=== PATIENT | male | born 1980 | race Caucasian/White ===

== ENCOUNTER → 2021-02-15 08:11 | Outpatient (BNVA) | payer SELFPAY | PROVIDERS: Visit Provider Internal Medicine | DX: Z02.79 Encounter for issue of other medical certificate (principal) ==

== ENCOUNTER → 2023-01-20 08:50 | Outpatient (BNVA) | payer SELFPAY | PROVIDERS: Visit Provider Physician Assistant | DX: Z02.79 Encounter for issue of other medical certificate (principal) ==

== ENCOUNTER → 2024-11-26 13:04 | Outpatient (BNVA) | payer OTHER, SELFPAY | PROVIDERS: Visit Provider Nurse Practitioner Family | DX: I48.0 Paroxysmal atrial fibrillation (principal); Z09 Encounter for follow-up examination after completed treatment for conditions other than malignant neoplasm | CPT/HCPCS: 93005 ==

== ENCOUNTER → 2024-11-26 13:55 | Outpatient (AMB) | payer OTHER, SELFPAY ==
--- NOTE | 2024-11-26 13:09 | A.OFFVIS_ITS ---
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 He was found to have atrial fibrillation and was sent to [facility] ER. He converted back to sinus rhythm prior to being seen. ER evaluation showed no acute abnormalities. He is referred to Cardiology in follow-up. Today he presents for cardiology consultation. He states on the day of his AFib he had been doing work in a squatting position then stood up. Idabel sudden onset palpitations with lightheadedness and shortness of breath. He has never felt this sensation before. He went to urgent care for evaluation. In all the episode lasted approximately 8 hours. He did convert prior to an EKG at [facility]. He has not had any known recurrent episodes since that time. He has no cardiac history. He denies chest discomfort at rest or with activity. No shortness of breath, PND, orthopnea or edema. is present and she has no concerns about him having sleep apnea. He has no presyncope, syncope, falls. He takes no medications at home. His mother had an MS in her 60s, no other family history of heart disease. No known family history of AFib. He drinks 1 caffeinated beverage per day. He drinks alcohol only occasionally. He works nights so his sleep schedule is erratic. He does have a home gym and has been using the e-[employer] aeroplanestical without concerning symptoms. [facility] Family History Mother Heart attack Social History Alcohol intake: current Alcohol intake frequency: holidays/special occasions only Review of Systems Const All systems reviewed & are unremarkable except as noted in HPI and below ENT Denies dizziness Card Details: palpitation, lightheaded and sob with afib only Denies chest pain, Denies chest pain at rest, Denies chest pain with activity, Denies rapid heart rate, Denies pedal edema, Denies edema, Denies leg edema, Denies lightheadedness, Denies palpitations, Denies dyspnea, Denies dyspnea on exertion and Denies orthopnea Resp Denies cough, Denies dyspnea and Denies dyspnea on exertion GI Denies hematochezia and Denies change in stool character Musc Denies abnormal gait, Denies limited range of motion, Denies muscle cramps, Denies muscle weakness, Denies numbness, Denies radiating pain into limb, Denies stiffness and Denies tingling Neuro Denies abnormal gait, Denies dizziness, Denies numbness and Denies tingling Endo Denies palpitations Physical Exam Vital Signs: Last Vital Signs Pulse 76 11/26/24 13:11 BP 90/62 11/26/24 13:11 BMI result Body Mass Index 29.6 Const General: cooperative, healthy appearing, comfortable and no acute distress Orientation/consciousness: patient oriented x3 Neck Neck: Yes normal visual inspection Resp Effort & Inspection: normal respiratory effort Auscultation: clear to auscultation bilaterally, no crackles, no rales, no rhonchi and no wheezes Cardio Rate: regular rate Rhythm: regular rhythm Heart sounds: S1 normal heart sound present, S2 normal heart sound present, no murmurs and no rubs Neuro General: patient oriented x3 Extrem General: Yes normal to inspection, No no pedal edema and No calf tenderness Psych Appearance: grossly normal Mental Status: mental status grossly normal Speech and movement: Normal speech and movement present Office Procedures EKG Details: Today, read by me, Sinus rhythm with PACs, rate 76, QTc 414ms [id number], Complete Assessment & Plan Assessment & Plan (1) Paroxysmal atrial fibrillation: Code(s): I48.0 - Paroxysmal atrial fibrillation Category: Medical Plan: New onset paroxysmal atrial fibrillation with episode on 11/05/2024 lasting approximately 8 hours. Symptoms of lightheadedness, palpitations, shortness of breath. EKG from urgent care confirms AFib RVR, rate 160. He converted without intervention, while waiting in the [facility] ER waiting room. ER evaluation showed no significant findings. Troponin level normal, TSH normal, viral swab negative. He was not started on any medications at that time. Chads Vasc score of 0. Today he reports no recurrent episodes since then. Diagnosis of PAF, stroke risk with AF and plan for cardiac evaluation reviewed with him. has no concerns about Basil having sleep apnea. He drinks alcohol only occasionally. He drinks 1 caffeinated beverage. Informed him that sleep apnea, excess alcohol and caffeine can cause reoccurrence of AFib. EKG done today is showing sinus rhythm with PACs, rate 76. Will start on metoprolol XL 25 mg daily to help with heart rate control if he has recurrent AFib. Will check a Holter monitor to assess for PAF and frequency of PACs. Will check an echocardiogram to assess for structural heart disease. Will check a exercise nuclear stress test to assess for ischemia. Emergency care if needed for recurrent heart palpitations. Cardiology follow-up in 4-6 weeks, when test results are available, sooner if needed. (2) Hospital discharge follow-up: Code(s): Z09 - Encounter for follow-up examination after completed treatment for conditions other than malignant neoplasm Category: Medical Plan: As above Plan Time spent on chart review, documentation, interview and assessment Orders: Orders NM cardiolite stress test Today I48.0 - Paroxysmal atrial fibrillation ECG 3 day holter monitor Today I48.0 - Paroxysmal atrial fibrillation CA stress test Today Z09 - Encounter for follow-up examination after completed treatment for conditions other than malignant neoplasm CA echo transthoracic complete Today I48.0 - Paroxysmal atrial fibrillation Medications: New metoprolol succinate ER 25 mg PO DAILY 30 tabs 5RF Coding Level of Care Code New Pt Level 4 (82074) Complex EM visit Add On G2211 Diagnoses Paroxysmal atrial fibrillation I48.0 Hospital discharge follow-up Z09 CPT Codes EKG - CPT: 67310-[id number], Complete ([id number]) Time Spent (min) 36
[2024-11-26 13:11] VITALS: BP 90/62; PULSE 76; BMI 29.6
== END | disposition home or self-care (01) ==
PROVIDERS: Visit Provider Nurse Practitioner Family
DX: I48.0 Paroxysmal atrial fibrillation (principal); Z09 Encounter for follow-up examination after completed treatment for conditions other than malignant neoplasm
CPT/HCPCS: 93010; 99204

== ENCOUNTER → 2024-12-11 07:45 | Outpatient (REF) | payer OTHER, SELFPAY ==
--- NOTE | 2024-12-11 07:49 | CA_ITS ---
Transthoracic Echocardiogram Patient (Last, First, Middle): Basil Lu A Gender: Male Date of : 1980 Age: 44 Procedure Date: 12/11/2024 Procedure Type: Transthoracic Echocardiogram Location: OP Height: 185.42 cm Weight: 97.52 kg BSA: 2.22 m2 Heart Rate: bpm BP: 104 / 66 mmHg Spa Assistant Manager: TO Referring MD: Chikis Loya SENSOR OPERATORJoslyn Symptoms: I48.0 - Paroxysmal atrial fibrillation Study Quality: Fair/Contrast ECG Rhythm: Sinus Conclusions: - The left ventricular systolic function is normal. The visually estimated ejection fraction is between 55-60%. - There is mild mitral valve regurgitation. Findings Procedure Information Contrast agent, definity, is being given per protocol without apparent complications. Left Ventricle Normal left ventricular cavity size. There is normal left ventricular wall thickness. The left ventricular systolic function is normal. The visually estimated ejection fraction is between 55-60%. There is no evidence of regional wall motion abnormalities. Diastolic function is normal for age. Right Ventricle Normal right ventricular cavity size and systolic function. Atria Both atria are normal in size. Aortic Valve There is a normal trileaflet aortic valve. There is no aortic valve stenosis. There is no aortic valve regurgitation. Mitral Valve The mitral valve appears normal. There is mild mitral valve regurgitation. There is no mitral valve stenosis. Pulmonic Valve The pulmonic valve is likely normal. Tricuspid Valve There is trace tricuspid valve regurgitation. There is no evidence of pulmonary hypertension. Great Vessels The asc aorta is normal in size. Venous The inferior vena cava is mildly dilated and collapses greater than 50% with inspiration. Pericardium/Pleural There is no evidence of pericardial effusion. Prior Study Comparison No prior study available for comparison. Measurements 2D Linear Measurements IVSd: 0.87 0.6-0.9/0.6-1.0 cm LVIDd: 5.44 3.9-5.3/4.2-5.9 cm LVIDd Index: 2.45 2.4-3.2/2.2-3.1 cm/m2 LVIDs: 4.03 2.0-3.6 cm LVPWd: 0.66 0.7-1.1 cm LA Diam: 3.50 2.7-3.8/3.0-4.0 cm LAIDs Index: 1.58 1.5-2.3 cm/m2 LV Mass: 185.18 67-162/88-224 g LV Mass Index: 83.41 43-95/49-115 g/m2 LVOT Diam: 2.30 3.0+(-)1.3 cm 2D Systolic Function EF 4C: 64.90 >55% Mitral Valve MV Pk E: 0.58 MV PK A: 0.31 MV Decel Time: 158.00 E/A: 1.90 E'Lateral: 13.60 E'Medial: 8.05 E/E' Med: 7.20 E/E' Lat: 4.30 PHT: 46.00 MVA PHT: 4.78 Decel Wright: 3.68 MR Vol - PW Dopp: 11.90 MR VTI: 1.70 MR ERO: 7.00 MR Alias Richie: 0.37 MR RAD: 0.40 Aortic Valve AoV Pk Richie: 1.10 AoV Mn Richie: 0.79 AoV VTI: 0.26 AoV Pk Grad: 5.00 Aov Mn Grad: 3.00 KYRIE Cont.VTI: 2.97 LVOT LVOT Pk Richie: 0.90 LVOT Mn Richie: 0.58 LVOT VTI: 0.18 LVOT Pk Grad: 3.00 LVOT Mn Grad: 2.00 LVOT Diam: 2.30 LVOT Area: 4.15 Diastolic Function MV Pk E: 0.58 MV Pk A: 0.31 E/A: 1.90 E'Medial: 8.05 E/E' Med: 7.20 E' Laterial: 13.60 E/E' Lat: 4.30 Right Ventricle TAPSE (mm): 22.80 TVS' Richie: 12.10 Tricuspid Valve TR Pk Richie: 2.02 TR Pk Grad: 16.00 RA Press: 8.00 RVSP: 24.00 Great Vessels Aorta Sinus of Valsalva: 3.42 2.0-3.5 cm Ao Asc: 3.30 2.1-3.4 cm Updated in Other Vendor System with Status of Final Yaniv Khalil MD electronically signed on 12/12/2024 7:59:51 AM with status of Final
--- OUTSIDE RECORDS SUMMARY | 2024-12-11 07:52 | XMS_ITS | Encounter Summary ---
Author Organization [facility] Address [address] [place] [address] Care Team Providers Care Summer School Coordinator Name Role Phone Argenis Patel MD Primary Care Provider [phone] Encounter Details Date Type Department Care Team (Late st Contact Info) Description 12/09/2024 2:15 PM EST Anesthesia Event [facility] [address] [place] [address] Lesly Winter MD [address] [place] [id number] Pari Branham CRNA [address] [place] [id number] Anesthesia Record Procedure Summary Procedure Name Responsible Anesthesiologist Anesthesia Start Time Anesthesia Stop Time COLONOSCOPY Lesly Winter MD 12/09/24 1415 1436 Events Date Time Event Comment 12/09/2024 1412 1415 An Start 1415 An Start Data The patient wa s reevaluated immediately before moderate or deep sedation use and before anesthesia induction. 1415 In Room 1416 Anesthesia Ready 1431 Out of Room 1433 an stop data 1436 An Stop 1440 Handoff to RN I completed my handoff to the receiving nurse during which we: 1. Identified the patient 2. Identified the responsible provider 3. Reviewed the pertinent medical history 4. Discussed the surgical course 5. Reviewed intra-op anesthesia management and issues during anesthesia 6. Set expectations for post-procedure period 7. Allowed opportunity for questions and acknowledgement of understanding. 1440 Handoff to RN I completed my handoff to the receiving nurse during which we: 1. Identified the patient 2. Identified the responsible provider 3. Reviewed the pertinent medical history 4. Discussed the surgical course 5. Reviewed intra-op anesthesia management and issues during anesthesia 6. Set expectations for post-procedure period 7. Allowed opportunity for questions and acknowledgement of understanding. Meds Name Total propofol (DIPRIVAN) injection 10 mg/mL 2 50 mg lidocaine PF (XYLOCAINE-MPF) local injec tion 2% 50 mg lactated Ringer's infusion 250 mL * Agents No agents on file. * Blood No blood administrations on file. Lines, Drains, and Airways Type Details Placement Removal Peripheral IV Placement Date: 12/09/24; Placement Time: 1353; Catheter Size: 22 G; Orientation: Anterior, Right; Location: Hand; Site Prep: Chlorhexidine; Inserted by: anjum; Insertion Attempts: 1; Patient Tolerance: Tolerated well; Removal Date: 12/09/24; Removal Time: 1445 12/09/24 1353 by Yumiko León RN 12/09/24 1445 by Kathryn Wayne RN documented in this encounter Social History Tobacco Use Types Packs/Day Years Used Date Smoking Tobacco: Never Smokeless Tobacco: Never Alcohol Use Standard Drinks/Week Comments Yes 3 (1 standard drink = 0.6 oz pur e alcohol) Interpersonal Safety Answer Date Record ed Physical Abuse 12/09/2024 Verbal Abuse 12/09/2024 Sex and Gender Information Value Date Recorded Sex Assigned at Male 12/09/2024 12:36 PM EST Legal Sex Male 6:10 PM EST Gender Identity Male 12/09/2024 12:36 PM EST Sexual Orientation Straight 12/09/2024 12 :36 PM EST documented as of this encounter Progress Notes * Pari Branham CRNA - 12/09/2024 2:36 PM EST Patient: Basli Lu Procedure Summary Date: 12/09/24 Room / Location: [facility] Anesthesia Start: 141 Anesthesia Stop: 143 Procedure: COLONOSCOPY Diagnosis: Colon cancer screening (Screening for colorectal malignant neoplasm) Scheduled Providers: Stephen Infante MD; Lesly Winter MD; Pari Branham CRNA Responsible Provider: Lesly Winter MD Anesthesia Type: MAC ASA Status: 3 Anesthesia Plan: MAC Last Vitals: Visit Vitals BP 123/71 Pulse 83 Temp 35.8 ??C (96.4 ??F) (Temporal) Resp 18 Ht 1.829 m (72 ) Wt 95.3 kg (210 lb) SpO2 95% BMI 28.48 kg/m?? Smoking Status Never BSA 2.18 m?? No data recorded Anesthesia Post Evaluation Patient location during evaluation: PACU Patient participation: complete - patient participated Level of consciousness: awake and alert Pain score: 0 Pain management: adequate Airway patency: patent Anesthetic complications: no Cardiovascular status: acceptable and stable Respiratory status: acceptable Hydration status: acceptable Nausea: No Vomiting: No There were no known notable events for this encounter. * Lesly Winter MD - 12/09/2024 2:06 PM EST 44 y.o. male scheduled for [COLONOSCOPY [GI6]] Ht Readings from Last 1 Encounters: 12/09/24 1.829 m (72 ) Wt Readings from Last 1 Encounters: 12/09/24 95.3 kg (210 lb) Body mass index is 28.48 kg/m??. Past Medical History: Diagnosis Date Atrial fibrillation, currently in sinus rhythm Epistaxis, recurrent 07/24/2018 DX:Epistaxis, recurrent; COMMENT: 2013 - Cauterizaton- both nares, CT- mild chronic sinusitis, hypoplastic R maxillary sinus, marked nasal septal deviation Rash 04/05/2016 DX:Rash Past Surgical History: Procedure Laterality Date OTHER SURGICAL HISTORY 2013 PROCEDURE: MA CHEMICAL CAUTERIZATION OF GRANULATION TISSUE; COMMENT: Nasal d/t nosebleeds 12/2013 left, 03/2014 right Denies anesthesia complications No Known Allergies Current Outpatient Medications on File Prior to Encounter Medication Sig Dispense Refill bisacodyL (DULCOLAX) 5 mg EC tablet Take 2 tablets by mouth right before beginning bowel prep. See instructions provided by the office 2 tablet 0 metoprolol succinate (TOPROL-XL) 25 mg 24 hr tablet Take 1 tablet (25 mg total) by mouth 1 (one) time each day. polyethylene glycol (Golytely) 236-22.74-6.74 -5.86 gram solution Take 4L by mouth once for one dose. May substitue any PEG. Starting at 6PM the night before your procedure drink 1 8oz glasses at your own pace until you complete half of the gallon. Finish 2nd half of the gallon 5 hours before your procedure. 4000 mL 0 ibuprofen (ADVIL,MOTRIN) 200 mg tablet Take 400 mg by mouth every 6 hours as needed. scopolamine (TRANSDERM-SCOP) 1 mg over 3 days patch [address] 1 Each onto the skin every 72 hoursas needed (dizziness). (Patient not taking: Reported on 10/31/2024) SUMAtriptan (IMITREX) 50 mg tablet 1 TAB BY MOUTH NEEDED FOR MIGRAINE.FOR REFRACTORY HEADACHE,MAY TAKE ADDITIONAL 50 MG.MAX 2/DAY (Patient not taking: Reported on 10/31/2024) No current facility-administered medications on file prior to encounter. Current In-hospital Medications Social History Tobacco Use Smoking status: Never Smokeless tobacco: Never Substance Use Topics Alcohol use: Yes Alcohol/week: 3.0 standard drinks of alcohol Types: 3 Standard drinks or equivalent per week Drug use: Not Currently Is the patient a current smoker (e.g. cigarette, cigar, pip, e-cigarette, or mariajuana)? Yes [] No[] Patient previously instructed to abstain from smoking on the day of procedure? Yes [] No[] Patient smoked on the day of procedure? Yes [] No[] ASPIRE smoking VBR: [] Not interested in quitting [] Interested in quitting- referred to treatment [] Interested in quitting - treatment provided Visit Vitals BP 123/71 Pulse 83 Temp 35.8 ??C (96.4 ??F) (Temporal) Resp 18 Ht 1.829 m (72 ) Wt 95.3 kg (210 lb) SpO2 95% BMI 28.48 kg/m?? Smoking Status Never BSA 2.18 m?? Available cardiac studies reviewed: No results found. EKG No results found for this or any previous visit (from the past 4464 hours). ECHO No results found for this or any previous visit. CATH No results found for this or any previous visit. LABS: No results found for: WBC , HGB , HCT , MCV , PLT Lab Results Component Value Date GLUCOSE 108 (H) 10/31/2024 CALCIUM 9.2 10/31/2024 NA 136 10/31/2024 K 3.7 10/31/2024 CO2 28 10/31/2024 CL 104 10/31/2024 BUN 16 10/31/2024 CREATININE 1.11 10/31/2024 No results found for: INR , PROTIME No results found for: PTT AFIB- Denies snoring/MARTITA Denies cardiac, pulm, neuro, hepatic or renal s/sx. Patient meets ASA guidelines for NPO status. > 4 mets without anginal symptoms. Relevant labs, vitals, imaging, cardiac and pulmonary studies as well as HPI, Meds, Allergies, ROS,PMH, PSH, SH, and FH reviewed. Relevant Problems Cardio (+) Atrial fibrillation (CMS/HCC) (+) Epistaxis, recurrent Clinical information reviewed: Tobacco Allergies Meds Med Hx Surg Hx Fam Hx Soc Hx Anesthesia Plan ASA 3 Anesthesia Plan: MAC Anesthesia Considerations MAC Anesthesia Risks Discussed serious complications Plan Factors Patient is not a current smoker Induction method: intravenous Anesthetic plan and risks discussed with patient. Anesthesia Plan discussed with attending. Anesthesia Evaluation Airway Mallampati: III Dental - normal exam Pulmonary - negative ROS breath sounds clear to auscultation Cardiovascular (+) dysrhythmias (h/o afib) Rhythm: regular Neuro/Psych - negative ROS Mental Status: alert and oriented GI/Hepatic/Renal - negative ROS Endo/Other - negative ROS Abdominal PONV RISK SCORE: 1 Vitals: 12/09/24 1354 BP: 123/71 Pulse: 83 Resp: 18 Temp: 35.8 ??C (96.4 ??F) TempSrc: Temporal SpO2: 95% Weight: 95.3 kg (210 lb) Height: 1.829 m (72 ) SpO2 Readings from Last 1 Encounters: 12/09/24 95% No results found for: WBC , RBC , HGB , HCT , PLT , MCV No Known Allergies STOP BANG: No data recorded NPO Status: Time of Last Liquid: 0800 Time of Last Solid: 1800 documented in this encounter Plan of Treatment Upcoming Encounters Date Type Department Care Team (Late st Contact Info) Description 11/03/2025 9:00 AM EST Office Visit Adult Medicine - [place] [address] [place] [id number] Argenis Patel MD [address] [place] [address] documented as of this encounter Visit Diagnoses Not on filedocumented in this encounter Administered Medications Inactive Administered Medications - up to 3 most recent administrations Medication Order MAR Action Action Date Dose Rate Site lactated Ringer's infusion intravenous, Continuous PRN, Starting on Mon12/09/24 at 1402, Anesthesia Intraprocedure New Bag 12/09/2024 2:02 PM EST lidocaine (PF) (XYLOCAINE-MPF) 2 % injection injection, As needed, Starting on Mon12/09/24 at 1419, Anesthesia Intraprocedure Given 12/09/2024 2:18 PM EST 50 mg propofoL (DIPRIVAN) injection intravenous, As needed, Starting on Mon12/09/24 at 1418, Anesthesia Intraprocedure Given 12/09/2024 2:26 PM EST 50 mg Given 12/09/2024 2:22 PM EST 100 mg Given 12/09/2024 2:18 PM EST 100 mg documented in this encounter Care Teams Summer School Coordinator Relationship Specialty Start Date End Date Argenis Patel MD [address] [place] [address] PCP - General Internal Medicine 12/09/15 documented as of this encounter
--- OUTSIDE RECORDS SUMMARY | 2024-12-11 07:52 | XMS_ITS | Clinical Summary ---
Author Organization [facility] [address] [facility] Address [address] [place] [address] Phone Care Team Providers Care Bus Repair Supervisor Name Role Phone Argenis Patel MD Primary Care Provider [phone] Allergies No known active allergies Medications ibuprofen (ADVIL,MOTRIN) 200 mg tablet Take 400 mg by mouth every 6 hours as needed. Active scopolamine (TRANSDERM-SCOP ) 1 mg over 3 days patch [address] 1 Each onto the skin every 72 hours as needed (dizziness). 4 Active SUMAtriptan (IMITREX) 50 mg tablet 1 TAB BY MOUTH NEEDED FOR MIGRAINE.FOR REFRACTORY HEADACHE,MAY TAKE ADDITIONAL 50 MG.MAX 2/DAY 2 Active bisacodyL (DULCOLAX) 5 mg EC tablet Take 2 tablets by mouth right before beginning bowel prep. See instructions provided by the office 2 tablet 5 Active polyethylene glycol (Golytely) 236-22.74-6.74 -5.86 gram solution Take 4L by mouth once for one dose. May substitue any PEG. Starting at 6PM the night before your procedure drink 1 8oz glasses at your own pace until you complete half of the gallon. Finish 2nd half of the gallon 5 hours before your procedure. 4000 mL 5 Active metoprolol succinate (TOPROL-XL) 25 mg 24 hr tablet Take 1 tablet (25 mg total) by mouth 1 (one) time each day. 5 Active Active Problems Problem Noted Date Diagnosed Date Atrial fibrillation 11/29/2024 Overview (11/29/2024): 11/09 Screening, lipid 10/31/2024 Overweight (BMI 25.0-29.9) 06/15/2020 Epistaxis, recurrent 07/24/2018 Overview (09/09/2024): 2013 - Cauterizaton- both nares, CT- mild chronic sinusitis, hypoplastic R maxillary sinus, marked nasal septal deviation Rash 04/05/2016 Encounters Date Type Department Care Team Description 12/09/2024 2:15 PM EST Anesthesia Event [facility] Endoscopy [address] [place] [address] Lesly Winter MD Elliott, Barbara J, CRNA 12/09/2024 12:39 PM EST Hospital Encounter [facility] Endoscopy [address] [place] [address] Stephen Infante MD Freeman, Katharine O, MD Elliott, Barbara J, CRNA Colon cancer screening 11/19/2024 Telephone Adult Medicine - [address] [address] Maxine Bonilla [place] Referral (Cardiology ) 10/31/2024 9:00 AM EST Office Visit Adult Medicine [address] [address] Argenis Patel MD Routine general medical examination at a health care facility (Primary Dx); Screening, lipid; Screening for diabetes mellitus; Colon cancer screening; URI, acute; Overweight (BMI 25.0-29.9) from Last 3 Months Immunizations Name Administration Dates Next Due Tdap Tetanus diptheria acell ular pertussis (Boostrix; Adacel) 7yo and older 04/05/2016 Surgical History Surgery Date Site/Laterality Comments OTHER SURGICAL HISTORY 2013 PROCEDURE: [place] CHEMICAL CAUTERIZATION OF GRANULATION TISSUE; COMMENT: Nasal d/t nosebleeds 12/2013 left, 03/2014 right Medical History Medical History Date Comments Epistaxis, recurrent 07/24/2018 DX:Epistaxi s, recurrent; COMMENT: 2013 - Cauterizaton- both nares, CT- mild chronic sinusitis, hypoplastic R maxillary sinus, marked nasal septal deviation Rash 04/05/2016 DX:Rash Atrial fibrillation, current ly in sinus rhythm Family History Medical History Relation Name Comments Thyroid disease Mother Relation Name Status Comments Mother Social History Tobacco Use Types Packs/Day Years [...] Orientation Straight 12/09/2024 12 :36 PM EST Obstetrics History Last Filed Vital Signs Vital Sign Reading Time Taken Comments Blood Pressure 100/73 12/09/2024 2:52 PM EST Pulse 80 12/09/2024 2:52 PM EST Temperature 35.8 ??C (96.4 ??F) 12/09/2024 2:32 PM ES T Respiratory Rate 16 12/09/2024 2:52 PM EST Oxygen Saturation 97% 12/09/2024 2:52 PM EST Inhaled Oxygen Concentration - - Weight 95.3 kg (210 lb) 12/09/2024 1:54 PM EST Height 182.9 cm (6') 12/09/2024 1:54 PM EST Body Mass Index 28.48 12/09/2024 1:54 PM EST Plan of Treatment Upcoming Encounters Date Type Department Care Team (Late st Contact Info) Description 11/03/2025 9:00 AM EST Office Visit Adult Medicine [facility] [address] [place] [address] Argenis Patel MD [address] [place] [address] Health Maintenance Due Date Last Done Comments Hepatitis B Vaccines (1 of 3 - 19+ 3-dose series) 1997 Depression Screening 09/17/2022 HIV Screening 09/17/2022 Social Influencers of Health Screening 09/17/2022 COVID-19 Vaccine (1 - 2023-2 5 season) 2024 Influenza Vaccine (#1) 2024 DTaP,Tdap,and Td Vaccines (2 - Td or Tdap) 04/05/2026 04/05/2016 Cholesterol Screening (Lipid Panel) 10/31/2029 10/31/2024, 10/30/2023 Colorectal Cancer Screening: Colonoscopy 12/09/2034 12/09/2024 Hepatitis C Screening Completed 11/15/2018 HIB Vaccines Aged Out No longer eligi ble based on patient's age to complete this topic HPV Vaccines Aged Out No longer eligi ble based on patient's age to complete this topic Hepatitis A Vaccines Aged Out No long er eligible based on patient's age to complete this topic IPV Vaccines Aged Out No longer eligi ble based on patient's age to complete this topic MMR Vaccines Aged Out No longer eligi ble based on patient's age to complete this topic Meningococcal ACWY Vaccine Aged Out N o longer eligible based on patient's age to complete this topic Meningococcal B Vacine Aged Out No lo nger eligible based on patient's age to complete this topic Pneumococcal Vaccine: Pediatrics (0 to 5 Years) and At-Risk Patients (6 to 64 Years) Aged Out No longer eligible b ased on patient's age to complete this topic RSV Immunization Patients Under 20 months Aged Out No longer eligible b ased on patient's age to complete this topic Varicella Vaccines Aged Out No longer eligible based on patient's age to complete this topic Procedures Procedure Name Priority Date/Time Associated Diagnosis Comments COLONOSCOPY Routine 12/09/2024 2:31 PM EST Colon cancer screening COMPREHENSIVE METABOLIC PANEL Routine 10/31/2024 9:40 AM EST Screening for diabetes mellitus LIPID PANEL WITH REFLEX TO DIRECT LDL Routine 10/31/2024 9:40 AM EST Screening, lipid from Last 3 Months Results * COLONOSCOPY Anesthesia - MAC; [facility] ENDOSCOPY (12/09/2024 2:31 PM EST) Anatomical Region Laterality Modality Other 12/09/2024 2:10 PM EST Impressions 12/09/2024 2:32 PM EST - The entire examined colon is normal on direct and ? retroflexion views. ? - No specimens collected. Recommendation: ?- Patient has a contact number available for ? emergencies. The signs and symptoms of potential ? delayed complications were discussed with the patient. ? Return to normal activities tomorrow. Written ? discharge instructions were provided to the patient. ? - Resume previous diet. ? - Continue present medications. ? - Repeat colonoscopy in 10 years for surveillance. Narrative 12/09/2024 2:32 PM EST [facility] GI Patient Name: Basil Guan Procedure Date: 12/09/2024 2:10 PM Date of : 1980 Age: 44 Room: ROOM 14 Gender: Male Note Status: Finalized Attending MD: Stephen Infante MD, Procedure Date No Time: 12/09/2024 Procedure: ? Colonoscopy Indications: ? Screening for colorectal malignant neoplasm Providers: ? Stephen Infante MD Referring MD: ?Stephen Infante MD Medicines: ? Monitored Anesthesia Care Complications: ? No immediate complications. Estimated Blood Loss: ? Estimated blood loss: none. Procedure: ? After I obtained informed consent, the scope was ? passed under direct vision. Throughout the procedure, ? the patient's blood pressure, pulse, and oxygen ? saturations were monitored continuously. The ? Colonoscope was introduced through the anus and ? advanced to the cecum, identified by appendiceal ? orifice and ileocecal valve. The colonoscopy was ? performed without difficulty. The patient tolerated ? the procedure well. The quality of the bowel ? preparation was adequate. Requiring much suction and ? irrrigation. Findings: ?The entire examined colon appeared normal on direct ? and retroflexion views. Procedure Code(s): ? --- Professional --- ? G0121, Colorectal cancer screening; colonoscopy on ? individual not meeting criteria for high risk Diagnosis Code(s): ? --- Professional --- ? Z12.11, Encounter for screening for malignant neoplasm ? of colon CPT copyright 2020 [employer]. All rights reserved. The codes documented in this report are preliminary and upon hospital coder review may be revised to meet current compliance requirements. MD Stephen Zacarias MD 12/09/2024 2:32:37 PM This report has been signed electronically.Stephen Infante MD Number of Addenda: 0 Note Initiated On: 12/09/2024 2:10 PM Scope In: Scope Out: ? Endoscopy Department at [facility] - [address] [place] [address], ? [place] [address] Procedure Note Stephen Infante MD - 12/09/2024 [facility] GI Patient Name: Basil Guan Procedure Date: 12/09/2024 2:10 PM Date of : 1980 Age: 44 Room: ROOM 14 Gender: Male Note Status: Finalized Attending MD: Stephne Infante MD, Procedure Date No Time: 12/09/2024 Procedure: Colonoscopy Indications: Screening for colorectal malignant neoplasm Providers: Stephen Infante MD Referring MD: Stephen Infante MD Medicines: Monitored Anesthesia Care Complications: No immediate complications. Estimated Blood Loss: Estimated blood loss: none. Procedure: After I obtained informed consent, the scope was passed under direct vision. Throughout theprocedure, the patient's blood pressure, pulse, and oxygen saturations were monitored continuously. The Colonoscope was introduced through the anus and advanced to the cecum, identified by appendiceal orifice and ileocecal valve. The colonoscopy was performed without difficulty. The patient tolerated the procedure well. The quality of the bowel preparation was adequate. Requiring much suctionand irrrigation. Findings: The entire examined colon appeared normal on direct and retroflexion views. Procedure Code(s): --- Professional --- G0121, Colorectal cancer screening; colonoscopy on individual not meeting criteria for high risk Diagnosis Code(s): --- Professional --- Z12.11, Encounter for screening for malignantneoplasm of colon CPT copyright 2020 [employer]. All rights reserved. The codes documented in this report are preliminary and upon hospital coder reviewmay be revised to meet current compliance requirements. MD Stephen Zacarias MD 12/09/2024 2:32:37 PM This report has been signed electronically.Stephen Infante MD Number of Addenda: 0 Note Initiated On: 12/09/2024 2:10 PM Scope In: Scope Out: Endoscopy Department at [facility] - [address] [place] [phone] IMPRESSION: - The entire examined colon is normal on direct and retroflexion views. - No specimens collected. Recommendation: - Patient has a contact number available for emergencies. The signs and symptoms of potential delayed complications were discussed with thepatient. Return to normal activities tomorrow. Written discharge instructions were provided to thepatient. - Resume previous diet. - Continue present medications. - Repeat colonoscopy in 10 years forsurveillance. Stephen Infante MD GI~PROCEDURE ORDERABLES Final R esult * (ABNORMAL) Lipid panel with reflex to direct LDL (10/31/2024 9:40 AM EST) Cholesterol 102 0 - 200 mg/dL LAB CHEMISTRY METHOD 10/31/2024 4:08 PM [facility] Triglycerides 77 0 - 150 mg/dL LAB CHEMISTRY METHOD 10/31/2024 4:08 PM [facility] HDL 38(L) >=40 mg/dL LAB CHEMISTRY METHOD 10/31/2024 4:08 PM [facility] LDL Calculated 49 0 - 100 mg/dL LAB CHEMISTRY METHOD 10/31/2024 4:08 PM [facility] VLDL Cholesterol Rony 15.4 mg/dL LAB CHEMISTRY METHOD 10/31/2024 4:08 PM [facility] Non HDL Chol. (LDL+VLDL) 64 <145 mg/dL LAB CHEMISTRY METHOD 10/31/2024 4:08 PM [facility] Chol/HDL Ratio 2.7 0.0 - 4.4 LAB CHEMISTRY METHOD 10/31/2024 4:08 PM [facility] Blood Venous blood specimen / Unknown Venipuncture / Unknown 10/31/2024 9:40 AM EST 10/31/2024 9:40 AM EST us C Edgar Patel MD LAB BLOOD ORDERABLES Final Res ult [facility] [address] [place] [address], [place] [phone] * (ABNORMAL) Comprehensive metabolic panel (10/31/2024 9:40 AM EST) Sodium 136 133 - 145 mmol/L LAB CHEMISTRY METHOD 10/31/2024 4:08 PM [facility] Potassium 3.7 3.5 - 5.5 mmol/L LAB CHEMISTRY METHOD 10/31/2024 4:08 PM [facility] Chloride 104 96 - 110 mmol/L LAB CHEMISTRY METHOD 10/31/2024 4:08 PM [facility] CO2 28 21 - 32 mmol/L LAB CHEMISTRY METHOD 10/31/2024 4:08 PM [facility] Anion Gap 4 3 - 11 LAB CHEMISTRY METHOD 10/31/2024 4:08 PM [facility] Glucose 108(H) 70 - 100 mg/dL LAB CHEMISTRY METHOD 10/31/2024 4:08 PM [facility] BUN 16 5 - 25 mg/dL LAB CHEMISTRY METHOD 10/31/2024 4:08 PM [facility] Creatinine 1.11 0.70 - 1.30 mg/dL LAB CHEMISTRY METHOD 10/31/2024 4:08 PM [facility] eGFR 83 >=60 mL/min/1. 73m2 LAB CHEMISTRY METHOD 10/31/2024 4:08 PM [facility] Comment:Calculation based on the??Chronic Kidney Disease Epidemiology Collaboration (CKD-EPI) equation refit??without adjustment for race. BUN/Creatinine Ratio 14.4 LAB CHEMISTRY METHOD 10/31/2024 4:08 PM [facility] Calcium 9.2 8.5 - 10.5 mg/dL LAB CHEMISTRY METHOD 10/31/2024 4:08 PM [facility] AST (SGOT) 14 10 - 42 unit/L LAB CHEMISTRY METHOD 10/31/2024 4:08 PM [facility] ALT (SGPT) 19 10 - 60 unit/L LAB CHEMISTRY METHOD 10/31/2024 4:08 PM [facility] Alkaline Phosphatase 75 42 - 121 unit/L LAB CHEMISTRY METHOD 10/31/2024 4:08 PM [facility] Total Protein 7.1 6.0 - 8.0 g/dL LAB CHEMISTRY METHOD 10/31/2024 4:08 PM [facility] Albumin 4.1 3.2 - 5.0 g/dL LAB CHEMISTRY METHOD 10/31/2024 4:08 PM [facility] Total Bilirubin 1.0 0.0 - 1.4 mg/dL LAB CHEMISTRY METHOD 10/31/2024 4:08 PM [facility] Blood Venous blood specimen / Unknown Venipuncture / Unknown 10/31/2024 9:40 AM EST 10/31/2024 9:40 AM EST C Edgar Patel MD LAB BLOOD ORDERABLES Final Res ult [facility] [address] [place] [address], from Last 3 Months [place] [id number] Care Teams Bus Repair Supervisor Relationship Specialty Start Date End Date Argenis Patel MD [address] [place] [id number] PCP - General Internal Medicine 12/09/15
--- OUTSIDE RECORDS SUMMARY | 2024-12-11 07:52 | XMS_ITS | Encounter Summary ---
Author Organization [facility] Address [address] [place] [address] Care Team Providers Care Software Engineering Project Manager Name Role Phone Argenis Patel MD Primary Care Provider Reason for Referral * Hospital - Outpatient (Routine) - Authorized Specialty Diagnoses / Procedures Referred By Contac t Referred To Contact Gastroenterology Diagnoses Colon cancer screening Procedures COLONOSCOPY Anesthesia - MAC; [facility] ENDOSCOPY Stephen Infante MD [address] [address] Phone: tel: fax: [facility] Endoscopy [address] [place] [phone] Phone: tel: Referral ID Status Reason Start Date Expiration Date V isits Requested Visits Authorized [id number] Authorized 11/13/2024 11/13/2025 1 1 Reason for Visit * Hospital - Outpatient (Routine) - Authorized Specialty Diagnoses / Procedures Referred By Contac t Referred To Contact Gastroenterology Diagnoses Colon cancer screening Procedures COLONOSCOPY Anesthesia - MAC; [facility] ENDOSCOPY Stephen Infante MD [address] [address] Phone: tel: fax: [facility] Endoscopy [address] [place] [address] Phone: tel: Referral ID Status Reason Start Date Expiration Date V isits Requested Visits Authorized [id number] Authorized 11/13/2024 11/13/2025 1 1 Encounter Details Date Type Department Care Team (Late st Contact Info) Description 12/09/2024 12:39 PM EST Hospital Encounter [facility] Endoscopy [address] [place] [address] Stephen Infante MD [address] [address] Lesly Winetr MD [address] [place] [address] Pari Branham CRNA [address] [place] [address] Colon cancer screening Social History Tobacco Use Types Packs/Day Years [...] PM EST documented as of this encounter Last Filed Vital Signs Vital Sign Reading [...] Mass Index 28.48 12/09/2024 1:54 PM EST documented in this encounter Progress Notes * Fe Herminia Wayne RN - 12/09/2024 2:45 PM EST Problem: Cognitive:Periop Procedure - Minor Goal: Knowledge of disease or condition will improve Outcome: Adequate for Discharge Problem: Sensory:Periop Procedure - Minor Goal: Demonstrates/reports adequate pain control Outcome: Adequate for Discharge * Yumiko León RN - 12/09/2024 1:47 PM EST Problem: Cognitive:Periop Procedure - Minor Goal: Knowledge of disease or condition will improve Outcome: Progressing Problem: Sensory:Periop Procedure - Minor Goal: Demonstrates/reports adequate pain control Outcome: Progressing The patient verbalized understanding of discharge instructions. Fall risk reviewed. Call scott at bedside. documented in this encounter H&P Notes * Stephen Infante MD - 12/09/2024 2:00 PM EST Pre-Op Diagnosis: Screening Proposed Procedure: Colonoscopy Performing Surgeon/MD/Endoscopist: Stephen Infante MD Medical/History: Past Medical History: Diagnosis Date Atrial fibrillation, currently in sinus rhythm Epistaxis, recurrent 07/24/2018 DX:Epistaxis, recurrent; COMMENT: 2013 - Cauterizaton- both nares, CT- mild chronic sinusitis, hypoplastic R maxillary sinus, marked nasal septal deviation Rash 04/05/2016 DX:Rash Past Surgical History: Procedure Laterality Date OTHER SURGICAL HISTORY 2013 PROCEDURE: [place] CHEMICAL CAUTERIZATION OF GRANULATION TISSUE; COMMENT: Nasal d/t nosebleeds 12/2013 left, 03/2014 right Medications/Allergies: Prior to Admission medications Medication Sig Start Date End Date Taking? Authorizing Provider bisacodyL (DULCOLAX) 5 mg EC tablet Take 2 tablets by mouth right before beginning bowel prep. See instructions provided by the office 11/13/24 Yes BALDEV Lay metoprolol succinate (TOPROL-XL) 25 mg 24 hr tablet Take 1 tablet (25 mg total) by mouth 1 (one) time each day. 11/26/24 Yes Historical Provider, polyethylene glycol (Golytely) 236-22.74-6.74 -5.86 gram solution Take 4L by mouth once for one dose. May substitue any PEG. Starting at 6PM the night before your procedure drink 1 8oz glasses at your own pace until you complete half of the gallon. Finish 2nd half of the gallon 5 hours before your procedure. 11/13/24 Yes BALDEV Lay ibuprofen (ADVIL,MOTRIN) 200 mg tablet Take 400 mg by mouth every 6 hours as needed. Historical Provider, scopolamine (TRANSDERM-SCOP) 1 mg over 3 days patch [address] 1 Each onto the skin every 72 hoursas needed (dizziness). Patient not taking: Reported on 10/31/2024 10/30/23 Historical Provider, SUMAtriptan (IMITREX) 50 mg tablet 1 TAB BY MOUTH NEEDED FOR MIGRAINE.FOR REFRACTORY HEADACHE,MAY TAKE ADDITIONAL 50 MG.MAX 2/DAY Patient not taking: Reported on 10/31/2024 06/09/22 Historical Provider, Patient Age:44 y.o. Vitals: Vitals: 12/09/24 1354 BP: 123/71 Pulse: 83 Resp: 18 Temp: 35.8 ??C (96.4 ??F) SpO2: 95% Physical Exam: Mental Status: Clear HEENT: WNL Heart: WNL Lungs: WNL Abdomen: WNL Extremities: WNL Neuro: WNL Labs: Imaging: Diagnosis/Plan: Colonoscopy documented in this encounter Plan of Treatment Upcoming Encounters Date Type Department Care Team (Late st Contact Info) Description 11/03/2025 9:00 AM EST Office Visit Adult Medicine [facility] [address] [place] [address] Argenis Patel MD [address] [place] [address] documented as of this encounter Procedures Procedure Name Priority Date/Time Associated Diagnosis Comments COLONOSCOPY Routine 12/09/2024 2:31 PM EST Colon cancer screening documented in this encounter Results * COLONOSCOPY Anesthesia - MAC; [facility] ENDOSCOPY (12/09/2024 2:31 PM EST) [...] for surveillance. Narrative 12/09/2024 2:32 PM EST [facility] GI Patient Name: Basil Lu Procedure Date: 12/09/2024 2:10 PM Date of [...] neoplasm ? of colon CPT copyright 2020 [employer]. All rights reserved. The codes documented in this report are preliminary and upon talent advisor review may be revised to meet current compliance requirements. MD Stephen Zacarias MD 12/09/2024 2:32:37 PM This report has been signed electronically.Stephen Infante MD Number of Addenda: 0 Note Initiated On: 12/09/2024 2:10 PM Scope In: Scope Out: ? Endoscopy Department at [facility] - [address] [place] [address], ? [place] [address] Procedure Note Stephen Infante MD - 12/09/2024 [facility] GI Patient Name: Basil Lu Procedure Date: 12/09/2024 2:10 PM Date of [...] for malignantneoplasm of colon CPT copyright 2020 [employer]. All rights reserved. The codes documented in this report are preliminary and upon talent advisor reviewmay be revised to meet current compliance requirements. MD Stephen Zacarias MD 12/09/2024 2:32:37 PM This report has been signed electronically.Stephen Infante MD Number of Addenda: 0 Note Initiated On: 12/09/2024 2:10 PM Scope In: Scope Out: Endoscopy Department at [facility] - [address] [place] [phone] IMPRESSION: - The entire examined colon is [...] medications. - Repeat colonoscopy in 10 years [facility]. Stephen Infante MD GI~PROCEDURE ORDERABLES Final R esult documented in this encounter Visit Diagnoses Diagnosis Colon cancer screening Special screening for malignant neoplasms, colon documented in this encounter Historical Medications * This list may reflect changes made after this encounter. metoprolol succinate (TOPROL-XL) 25 mg 24 hr tablet Take 1 tablet (25 mg total) by mouth 1 (one) time each day. 11/26/2024 added in this encounter Orders Discharge Count Last Ordered Date First Orde red Date DISCHARGE PATIENT 1 12/09/2024 documented in this encounter Care Teams Software Engineering Project Manager Relationship Specialty Start Date End Date Argenis Patel MD [address] [place] [id number] PCP - General Internal Medicine 12/09/15 documented as of this encounter
--- OUTSIDE RECORDS SUMMARY | 2024-12-11 07:52 | XMS_ITS | Encounter Summary ---
Author Organization [facility] Address [address] [place] [address] Care Team Providers Care Carburetor Expert Name Role Phone Argenis Patel MD Primary Care Provider [phone] Reason for Referral * Consultation (Routine) - Pending Review Specialty Diagnoses / Procedures Referred By Contac t Referred To Contact Cardiology Diagnoses Atrial fibrillation, unspecified type (CMS/HCC) Argenis Patel MD [address] [place] [address] Phone: tel: fax: Referral ID Status Reason Start Date Expiration Date Visits Requested Visits Authorized [id number] Pending Review Specialty Services Required 12/02/2024 12/02/2025 1 1 Reason for Visit * Reason Onset Date Comments Referral 11/19/2024 Cardiology Encounter Details Date Type Department Care Team (Late st Contact Info) Description 11/19/2024 Telephone Adult Medicine [facility] [address] [place] [phone] Maxine Bonilla MA Referral (Cardiology ) Social History Tobacco Use Types Packs/Day Years Used Date Smoking Tobacco: Never Smokeless Tobacco: Never Alcohol Use Standard Drinks/Week Comments Yes 3 (1 standard drink = 0.6 oz pur e alcohol) Sex and Gender Information Value Date Recorded Sex Assigned at Male 12/09/2024 12:36 PM EST Legal Sex Male 6:10 PM EST Gender Identity Male 12/09/2024 12:36 PM EST Sexual Orientation Straight 12/09/2024 12 :36 PM EST documented as of this encounter Progress Notes * Argenis Patel MD - 12/02/2024 7:48 AM EST Referral signed * Natalie Briones MA - 11/26/2024 11:48 AM EST My mistake , ER listed in message. Printed and placed in your in basket. * Natalie Briones MA - 11/21/2024 10:52 AM EST Message left for patient to call office back. Need to confirm the ER he was seen at. * Argenis Patel MD - 11/20/2024 4:40 PM EST ER notes? * Natalie Briones MA - 11/20/2024 3:57 PM EST Pended referral for cardiology, please advise if patient needs er follow-up first. * Maxine Bonilla MA - 11/19/2024 9:09 AM EST [email or web address] message from patient : Joaquina, I was in the ER last week 11/05/24 at [facility] for my heart being in AFib. I would like for Dr Patel to send a referral to: [facility]. [address] [place] [address] Dr 3rd floor [place] [phone] They want me to do a follow up with a pulmonary fellow and this is where I would like to go. Thank you Basil Lu documented in this encounter Plan of Treatment Upcoming Encounters Date Type Department Care Team (Late st Contact Info) Description 11/03/2025 9:00 AM EST Office Visit Adult Medicine - [place] 230 [facility] [place] [address] Argenis Patel MD [address] [place] [address] Scheduled Referrals Name Type Priority Associated Diagnoses Order Schedule Ambulatory referral to Cardiology Outpatient Referral Routine Atrial fibrillation, unspecified type (CMS/HCC) 1 Occurrences starting 12/02/2024 until 11/20/2025 documented as of this encounter Visit Diagnoses Diagnosis Atrial fibrillation, unspecified type (CMS/HCC)- Primary documented in this encounter Care Teams Carburetor Expert Relationship Specialty Start Date End Date Argenis Patel MD [address] [place] [address] PCP - General Internal Medicine 12/09/15 documented as of this encounter
== END ==
LOC: HO.CARD 07:45
PROVIDERS: PCP Pediatrics; Visit Provider Nurse Practitioner Family
DX: I48.0 Paroxysmal atrial fibrillation (principal)
CPT/HCPCS: 93242; 93306; Q9957

== ENCOUNTER → 2024-12-11 07:49 | Outpatient (BNV) | payer OTHER, SELFPAY | PROVIDERS: PCP Pediatrics; Visit Provider Internal Medicine | DX: I34.0 Nonrheumatic mitral (valve) insufficiency (principal); I48.0 Paroxysmal atrial fibrillation | CPT/HCPCS: 93306 ==

== ENCOUNTER → 2024-12-18 08:26 | Outpatient (REF) | payer OTHER, SELFPAY ==
--- NOTE | 2024-12-18 08:28 | CA_ITS ---
Acquisition Time: 2024-12-18 08:43:15 Total Exercise Time: 00:09:00 Test Indications: AFIB Medications: SEE H&P Protocol: LAMAR Max HR: 157 BPM 90% of Pred: 174 BPM Max BP: 130/42 mmHG Max Work Load: 10.1 METS Exercise Stress Test with exercise 9 mins of Lamar Protocol, achieving 89% MPHR, without any anginal symptoms, without any arrythmias, with normotensive response to exercise. Without EKG changes meeting criteria for ischemia. Echo images were obtained by [facility] at rest and post peak exercise. Definity contrast utilized. Test reviewed with Dr. Wesley. Referred By: Chikis Loya Electronically Signed By: Arslan Heaton
--- OUTSIDE RECORDS SUMMARY | 2024-12-18 08:56 | XMS_ITS | Clinical Summary ---
Author Organization [facility] [address] [facility] Address [address] [place] [address] Phone Care Team Providers Care Golf Course Architect Name Role Phone Argenis Patel MD Primary Care Provider [phone] Allergies No known active allergies Medications ibuprofen [...] 25.0-29.9) 06/15/2020 Epistaxis, recurrent 07/24/2018 Overview (09/09/2024): 2014 - Cauterizaton- both nares, CT- mild chronic sinusitis, hypoplastic R maxillary sinus, marked nasal septal deviation Rash 04/05/2016 Encounters Date Type Department Care Team Description 12/09/2024 2:15 PM EST Anesthesia Event [facility] Endoscopy [address] [place] [address] Lesly Winter MD Elliott, Barbara J, CRNA 12/09/2024 12:39 PM EST - 12/09/2024 11:59 PM EST Hospital Encounter [facility] Endoscopy [address] [place] [address] Stephen Infante MD Freeman, Katharine O, MD Elliott, Barbara J, CRNA Colon cancer screening Discharge Disposition: Home or Self Care 11/19/2024 Telephone Adult Medicine - [address] [address] Maxine Bonilla MA Referral (Cardiology ) 10/31/2024 9:00 AM EST Office Visit Adult [address] [address] Argenis Patel MD Routine general medical examination at a health care facility (Primary Dx); Screening, lipid; Screening for diabetes mellitus; Colon cancer screening; URI, acute; Overweight (BMI 25.0-29.9) from Last 3 Months Immunizations Name Administration Dates Next Due Tdap Tetanus diptheria acell ular pertussis (Boostrix; Adacel) 7yo and older 04/05/2016 Surgical History Surgery Date Site/Laterality Comments OTHER SURGICAL HISTORY 2013 PROCEDURE: [place] CHEMICAL CAUTERIZATION OF GRANULATION TISSUE; COMMENT: Nasal [...] AM EST Office Visit Adult Medicine - [place] [address] [place] [address] Argenis Patel MD [address] [place] [address] Health Maintenance Due Date Last Done Comments [...] Months Results * COLONOSCOPY Anesthesia - MAC; [facility] ENDOSCOPY (12/09/2024 2:31 PM EST) Anatomical Region [...] for surveillance. Narrative 12/09/2024 2:32 PM EST [facility] GI Patient Name: Basil Guan Procedure Date: [...] neoplasm ? of colon CPT copyright 2020 [employer]. All rights reserved. The codes documented in this report are preliminary and upon striker out review may be revised to meet current compliance requirements. MD Stephen Zacarias MD 12/09/2024 2:32:37 PM This report has been signed electronically.Stephen Infante MD Number of Addenda: 0 Note Initiated On: 12/09/2024 2:10 PM Scope In: Scope Out: ? Endoscopy Department at [facility] - [address] [place] [address], ? [place] [address] Procedure Note Stephen Infante MD - 12/09/2024 [facility] GI Patient Name: Basil Guan Procedure Date: [...] for malignantneoplasm of colon CPT copyright 2020 [employer]. All rights reserved. The codes documented in this report are preliminary and upon striker out reviewmay be revised to meet current compliance requirements. MD Stephen Zacarias MD 12/09/2024 2:32:37 PM This report has been signed electronically.Stephen Infante MD Number of Addenda: 0 Note Initiated On: 12/09/2024 2:10 PM Scope In: Scope Out: Endoscopy Department at [facility] - [address] [place] [phone] IMPRESSION: - The entire examined colon is [...] Repeat colonoscopy in 10 years forsurveillance. Stephen Infnate MD GI~PROCEDURE ORDERABLES Final R esult * (ABNORMAL) Lipid panel with reflex to direct LDL (10/31/2024 9:40 AM EST) Cholesterol 102 0 - 200 mg/dL LAB CHEMISTRY METHOD 10/31/2024 4:08 PM [facility] Triglycerides 77 0 - 150 mg/dL LAB CHEMISTRY METHOD 10/31/2024 4:08 PM [facility] HDL 38(L) >=40 mg/dL LAB CHEMISTRY METHOD 10/31/2024 4:08 PM [facility] LDL Calculated 49 0 - 100 mg/dL LAB CHEMISTRY METHOD 10/31/2024 4:08 PM [facility] VLDL Cholesterol Rony 15.4 mg/dL LAB CHEMISTRY METHOD 10/31/2024 4:08 PM [facility] Non HDL Chol. (LDL+VLDL) 64 <145 mg/dL LAB CHEMISTRY METHOD 10/31/2024 4:08 PM [facility] Chol/HDL Ratio 2.7 0.0 - 4.4 LAB CHEMISTRY METHOD 10/31/2024 4:08 PM [facility] Blood Venous blood specimen / Unknown Venipuncture / Unknown 10/31/2024 9:40 AM EST 10/31/2024 9:40 AM EST C Edgar Patel MD LAB BLOOD ORDERABLES Final Res ult [facility] [address] [place] [address], [place] [phone] * (ABNORMAL) Comprehensive metabolic panel (10/31/2024 9:40 AM EST) Sodium 136 133 - 145 mmol/L LAB CHEMISTRY METHOD 10/31/2024 4:08 PM [facility] Potassium 3.7 3.5 - 5.5 mmol/L LAB CHEMISTRY METHOD 10/31/2024 4:08 PM [facility] Chloride 104 96 - 110 mmol/L LAB CHEMISTRY METHOD 10/31/2024 4:08 PM [facility] CO2 28 21 - 32 mmol/L LAB CHEMISTRY METHOD 10/31/2024 4:08 PM [facility] Anion Gap 4 3 - 11 LAB CHEMISTRY METHOD 10/31/2024 4:08 PM [facility] Glucose 108(H) 70 - 100 mg/dL LAB CHEMISTRY METHOD 10/31/2024 4:08 PM [facility] BUN 16 5 - 25 mg/dL LAB CHEMISTRY METHOD 10/31/2024 4:08 PM [facility] Creatinine 1.11 0.70 - 1.30 mg/dL LAB CHEMISTRY METHOD 10/31/2024 4:08 PM [facility] eGFR 83 >=60 mL/min/1. 73m2 LAB CHEMISTRY METHOD 10/31/2024 4:08 PM [facility] Comment:Calculation based on the??Chronic Kidney Disease Epidemiology Collaboration (CKD-EPI) equation refit??without adjustment for race. BUN/Creatinine Ratio 14.4 LAB CHEMISTRY METHOD 10/31/2024 4:08 PM [facility] Calcium 9.2 8.5 - 10.5 mg/dL LAB CHEMISTRY METHOD 10/31/2024 4:08 PM [facility] AST (SGOT) 14 10 - 42 unit/L LAB CHEMISTRY METHOD 10/31/2024 4:08 PM [facility] ALT (SGPT) 19 10 - 60 unit/L LAB CHEMISTRY METHOD 10/31/2024 4:08 PM [facility] Alkaline Phosphatase 75 42 - 121 unit/L LAB CHEMISTRY METHOD 10/31/2024 4:08 PM [facility] Total Protein 7.1 6.0 - 8.0 g/dL LAB CHEMISTRY METHOD 10/31/2024 4:08 PM [facility] Albumin 4.1 3.2 - 5.0 g/dL LAB CHEMISTRY METHOD 10/31/2024 4:08 PM [facility] Total Bilirubin 1.0 0.0 - 1.4 mg/dL LAB CHEMISTRY METHOD 10/31/2024 4:08 PM [facility] Blood Venous blood specimen / Unknown Venipuncture / Unknown 10/31/2024 9:40 AM EST 10/31/2024 9:40 AM EST us C Edgar Patel MD LAB BLOOD ORDERABLES Final Res ult [facility] [address] [place] [address], from Last 3 Months Insurance [employer] Care Teams Golf Course Architect Relationship Specialty Start Date End Date Argenis Patel MD [address] [place] [address] PCP - General Internal Medicine 12/09/15
--- OUTSIDE RECORDS SUMMARY | 2024-12-18 08:57 | XMS_ITS | Encounter Summary ---
Author Organization [facility] Address [address] [place] [address] Care Team Providers Care Water Leak Repairer Name Role Phone Argenis Patel MD Primary Care Provider [phone] Reason for Referral * Consultation (Routine) - Pending Review Specialty Diagnoses / Procedures Referred By Contac t Referred To Contact Cardiology Diagnoses Atrial fibrillation, unspecified type (CMS/HCC) Argenis Patel MD [address] [place] [address] Phone: tel: fax: Referral ID Status Reason Start Date Expiration Date Visits Requested Visits Authorized [id number] Pending Review Specialty Services Required 12/02/2024 12/02/2025 1 1 Reason for Visit * Reason Onset Date Comments Referral 11/19/2024 Cardiology Encounter Details Date Type Department Care Team (Late st Contact Info) Description 11/19/2024 Telephone Adult Medicine [facility] [address] [place] [phone] Maxine Bonilla MA Referral (Cardiology ) Social [...] Bonilla MA - 11/19/2024 9:09 AM EST [employer] message from patient : Joaquina, I was in the ER last week 11/05/24 at [facility] for my heart being in AFib. I would like for Dr Patel to send a referral to: [facility]. [address] [place] [address] Dr 3rd floor [place] [phone] They want me to do a follow up with a media assistant and this is where I would like to go. Thank you Basil uL documented in this encounter Plan of Treatment Upcoming Encounters Date Type Department Care Team (Late st Contact Info) Description 11/03/2025 9:00 AM EST Office Visit Adult Medicine - [place] 230 [facility] [place] [address] Argenis Patel MD [address] [place] [address] Scheduled Referrals Name Type Priority Associated Diagnoses Order Schedule Ambulatory referral to Cardiology Outpatient Referral Routine Atrial fibrillation, unspecified type (CMS/HCC) 1 Occurrences starting 12/02/2024 until 11/20/2025 documented as of this encounter Visit Diagnoses Diagnosis Atrial fibrillation, unspecified type (CMS/HCC)- Primary documented in this encounter Care Teams Water Leak Repairer Relationship Specialty Start Date End Date Argenis Patel MD [address] [place] [address] PCP - General Internal Medicine 12/09/15 documented as of this encounter
--- OUTSIDE RECORDS SUMMARY | 2024-12-18 08:57 | XMS_ITS | Encounter Summary ---
Author Organization [facility] Address [address] [place] [address] Care Team Providers Care Soil Biology Teacher Name Role Phone Argenis Patel MD Primary Care Provider [phone] Reason for Referral * Hospital - Outpatient (Routine) - Closed Specialty Diagnoses / Procedures Referred By Contac t Referred To Contact Gastroenterology Diagnoses Colon cancer screening Procedures COLONOSCOPY Anesthesia - MAC; [facility] ENDOSCOPY Stephen Infante MD [address] [address] Phone: tel: fax: [facility] Endoscopy [address] [place] [phone] Phone: tel: Referral ID Status Reason Start Date Expiration Date Visits Re quested Visits Authorized [id number] Closed 11/13/2024 11/13/2025 1 1 Reason for Visit * Hospital - Outpatient (Routine) - Closed Specialty Diagnoses / Procedures Referred By Contac t Referred To Contact Gastroenterology Diagnoses Colon cancer screening Procedures COLONOSCOPY Anesthesia - MAC; [facility] ENDOSCOPY Stephen Infante MD [address] [address] Phone: tel: fax: [facility] Endoscopy [address] [place] [address] Phone: tel: Referral ID Status Reason Start Date Expiration Date Visits Re quested Visits Authorized [id number] Closed 11/13/2024 11/13/2025 1 1 Encounter Details Date Type Department Care Team (Late st Contact Info) Description 12/09/2024 12:39 PM EST - 12/09/2024 11:59 PM EST Hospital Encounter [facility] Endoscopy [address] [place] [phone] Stephen Infante MD [address] [address] Lesly Winter MD [address] [place] [phone] Pari Branham CRNA [address] [place] [address] Colon cancer screening Discharge Disposition: Home or Self Care Social History Tobacco Use Types Packs/Day Years [...] 1:54 PM EST documented in this encounter Discharge Instructions * Attachments The following attachments cannot be sent through Care Everywhere. * Colonoscopy: Post-op (Sami) documented in this encounter Medications at Time of Discharge bisacodyL (DULCOLAX) 5 mg EC tablet Take 2 tablets by mouth right before beginning bowel prep. See instructions provided by the office 2 tablet 11/13/2024 ibuprofen (ADVIL,MOTRIN) 200 mg tablet Take 400 mg by mouth every 6 hours as needed. metoprolol succinate (TOPROL-XL) 25 mg 24 hr tablet Take 1 tablet (25 mg total) by mouth 1 (one) time each day. 11/26/2024 polyethylene glycol (Golytely) 236-22.74-6.74 -5.86 gram solution Take 4L by mouth once for one dose. May substitue any PEG. Starting at 6PM the night before your procedure drink 1 8oz glasses at your own pace until you complete half of the gallon. Finish 2nd half of the gallon 5 hours before your procedure. 4000 mL 11/13/2024 scopolamine (TRANSDERM-SCOP) 1 mg over 3 days patch [address] 1 Each onto the skin every 72 hours as needed (dizziness). 10/30/2023 SUMAtriptan (IMITREX) 50 mg tablet 1 TAB BY MOUTH NEEDED FOR MIGRAINE.FOR REFRACTORY HEADACHE,MAY TAKE ADDITIONAL 50 MG.MAX 2/DAY 06/09/2022 documented as of this encounter Discharge Disposition Disposition Code Departure Means Destination Home or Self Care documented in this encounter Progress Notes * Kathryn Wayne RN - 12/09/2024 2:45 PM EST [...] Laterality Date OTHER SURGICAL HISTORY 2013 PROCEDURE: IN CHEMICAL CAUTERIZATION OF GRANULATION TISSUE; COMMENT: Nasal [...] Description 11/03/2025 9:00 AM EST Office Visit [facility] [address] [place] [address] Argenis Patel MD [address] [place] [address] documented as of this encounter Procedures Procedure Name Priority Date/Time Associated Diagnosis Comments COLONOSCOPY Routine 12/09/2024 2:31 PM EST Colon cancer screening documented in this encounter Results * COLONOSCOPY Anesthesia - MAC; [facility] ENDOSCOPY (12/09/2024 2:31 PM EST) [...] for surveillance. Narrative 12/09/2024 2:32 PM EST [facility] GI Patient Name: Basil Lu Procedure Date: [...] neoplasm ? of colon CPT copyright 2020 [employer]. All rights reserved. The codes documented in this report are preliminary and upon drop wire hanger review may be revised to meet current compliance requirements. MD Stephen Zacarias MD 12/09/2024 2:32:37 PM This report has been signed electronically.Stephen Infante MD Number of Addenda: 0 Note Initiated On: 12/09/2024 2:10 PM Scope In: Scope Out: ? Endoscopy Department at [facility] - [address] [place] [address], ? [place] [address] Procedure Note Stephen Infante MD - 12/09/2024 [facility] GI Patient Name: Basil Lu Procedure Date: [...] for malignantneoplasm of colon CPT copyright 2020 [employer]. All rights reserved. The codes documented in this report are preliminary and upon drop wire hanger reviewmay be revised to meet current compliance requirements. MD Stephen Zacarias MD 12/09/2024 2:32:37 PM This report has been signed electronically.Stephen Infante MD Number of Addenda: 0 Note Initiated On: 12/09/2024 2:10 PM Scope In: Scope Out: Endoscopy Department at [facility] - [address] [place] [phone] IMPRESSION: - The entire examined colon is [...] medications. - Repeat colonoscopy in 10 years [facility]. Stephen Infante MD GI~PROCEDURE ORDERABLES Final [...] 12/09/2024 documented in this encounter Care Teams Soil Biology Teacher Relationship Specialty Start Date End Date Argenis Patel MD [address] [place] [address] PCP - General Internal Medicine 12/09/15 documented as of this encounter
--- OUTSIDE RECORDS SUMMARY | 2024-12-18 08:57 | XMS_ITS | Encounter Summary ---
Author Organization [facility] Address [address] [place] [address] Care Team Providers Care Table Runner Name Role Phone Argenis Patel MD Primary Care Provider [phone] Encounter Details Date Type Department Care Team (Late st Contact Info) Description 12/09/2024 2:15 PM EST Anesthesia Event [facility] Endoscopy [address] [place] [address] Lesly Winter MD [address] [place] [address] Pari Branham CRNA [address] [place] [address] Anesthesia Record Procedure Summary Procedure Name Responsible [...] CRNA - 12/09/2024 2:36 PM EST Patient: Basil Lu Procedure Summary Date: 12/09/24 Room / Location: [facility] Endoscopy Anesthesia Start: 141 Anesthesia Stop: 143 [...] AM EST Office Visit Adult Medicine - [place] [address] [place] [phone] Argenis Patel MD [address] [place] [address] documented as of this encounter Visit Diagnoses [...] mg documented in this encounter Care Teams Table Runner Relationship Specialty Start Date End Date Argenis Patel MD [address] [place] [address] PCP - General Internal Medicine 12/09/15 documented as of this encounter
== END ==
LOC: HO.CARD 08:26
PROVIDERS: PCP Pediatrics; Visit Provider Nurse Practitioner Family
DX: I48.0 Paroxysmal atrial fibrillation (principal)
CPT/HCPCS: 93350; Q9957

== ENCOUNTER → 2024-12-18 08:28 | Outpatient (BNV) | payer OTHER, SELFPAY | PROVIDERS: PCP Pediatrics | DX: I48.91 Unspecified atrial fibrillation (principal) | CPT/HCPCS: 93016; 93018; 93350; 93352 ==

== ENCOUNTER 2024-12-24 08:42 | Outpatient (AMB) | payer OTHER, SELFPAY ==
--- NOTE | 2024-12-24 08:53 | MHC.OFFVIS ---
Vital Signs 12/24/24 08:54 Height 6 ft 1 in Weight 221 lb 5.506 oz BMI 29.2 BP 90/62 Blood Pressure Location Rt brachial Position Sitting Pulse 61 Pulse Source Pulse Oximeter Intake Visit Reasons: 4-6 wk follow up after testing Medical Review Specialist Required: No Cashier Assistant: Cashier Assistant Present Allergies No Known Allergies Allergy (Verified 12/24/24 08:55) Medication List - Last Reconciled 12/24/24 by Chikis Loya NP-C metoprolol succinate ER 25 mg PO DAILY HPI HPI 4-6 wk follow up after testing: Details: Basil is a 44-year-old male with no significant past medical history who had 1 8 hour episode of symptomatic paroxysmal atrial fibrillation. He converted on his own prior to being seen in the emergency room. An EKG had been obtained in urgent care prior to presenting to the ER. On last visit a Holter monitor, echocardiogram and stress echocardiogram were ordered and he now presents for follow-up. Today he reports he has been doing well since his last visit. He has not had any known recurrent heart palpitations. He reports good activity tolerance. No chest discomfort, shortness of breath, lightheadedness. He has been taking the metoprolol each day without any concerning side effects. He continues to drink 1 caffeinated beverage per day. He drinks alcohol only occasionally. He works nights so his sleep schedule is erratic. He does have a home gym and has been using the elliptical without concerning symptoms. present. [facility] Medical History (Updated 12/24/24 @ 10:16 by Chikis Loya NP-C) Paroxysmal atrial fibrillation Family History Mother Heart attack Social History Alcohol intake: current Alcohol intake frequency: holidays/special occasions only Review of Systems Const All systems reviewed & are unremarkable except as noted in HPI and below ENT Denies dizziness Card Denies chest pain, Denies chest pain at rest, Denies chest pain with activity, Denies rapid heart rate, Denies pedal edema, Denies edema, Denies leg edema, Denies lightheadedness, Denies palpitations, Denies dyspnea, Denies dyspnea on exertion and Denies orthopnea Resp Denies cough, Denies dyspnea and Denies dyspnea on exertion GI Denies hematochezia and Denies change in stool character Musc Denies abnormal gait, Denies limited range of motion, Denies muscle cramps, Denies muscle weakness, Denies numbness, Denies radiating pain into limb, Denies stiffness and Denies tingling Neuro Denies abnormal gait, Denies dizziness, Denies numbness and Denies tingling Endo Denies palpitations Physical Exam Vital Signs: Last Vital Signs Pulse 61 12/24/24 08:54 BP 90/62 12/24/24 08:54 BMI result Body Mass Index 29.2 Const General: cooperative, healthy appearing, comfortable and no acute distress Orientation/consciousness: patient oriented x3 Neck Neck: Yes normal visual inspection Resp Effort & Inspection: normal respiratory effort Auscultation: clear to auscultation bilaterally, no crackles, no rales, no rhonchi and no wheezes Cardio Jugular venous distension: no JVD Rate: regular rate Rhythm: regular rhythm Heart sounds: S1 normal heart sound present, S2 normal heart sound present, no murmurs and no rubs Neuro General: patient oriented x3 Extrem General: Yes normal to inspection, No no pedal edema and No calf tenderness Psych Appearance: grossly normal Mental Status: mental status grossly normal Speech and movement: Normal speech and movement present Assessment & Plan Assessment & Plan (1) Paroxysmal atrial fibrillation: Code(s): I48.0 - Paroxysmal atrial fibrillation Category: Medical Plan: New onset paroxysmal atrial fibrillation with episode on 11/05/2024 lasting approximately 8 hours. Symptoms of lightheadedness, palpitations, shortness of breath. EKG from urgent care confirms AFib RVR, rate 160. He converted without intervention, while [place] in [place] [facility] [place]. ER evaluation showed no significant findings. Troponin level normal, TSH normal, viral swab negative. On last visit he was started on metoprolol XL 25 mg daily. Chads Vasc score of 0, anticoagulation not indicated. Echocardiogram done 12/11/2024 showed EF 55-60%, mild MR, atria normal size. Holter monitor done 12/11/2024 for 3 days shows sinus rhythm with average 73, rare PACs and a 12 second run of atrial fibrillation, burden 0.01%. Stress echocardiogram done 12/18/2024 with exercise 9 minutes, no anginal symptoms, no EKG changes however echo images suboptimal to determine ischemia. Test results reviewed with him in detail. Pulse regular on exam today. Will have him continue metoprolol XL 25 mg daily. Notify this office if he has recurrent atrial fibrillation. Instructed him to get a Kardiamobile device for home monitoring. He can continue to drink 1 caffeinated beverage per day. Instructed to limit alcohol intake. Emergency care if needed for recurrent heart palpitations. Cardiology follow-up in 4-5 months, sooner if needed. Plan Time spent on chart review, documentation, interview and assessment Coding Level of Care Code Est Pt Level 3 (10998) Complex EM visit Add On G2211 Diagnoses Paroxysmal atrial fibrillation I48.0 Time Spent (min) 24
[2024-12-24 08:54] VITALS: BP 90/62; PULSE 61; BMI 29.2
--- OUTSIDE RECORDS SUMMARY | 2024-12-24 09:30 | XMS_ITS | Encounter Summary ---
Author Organization [facility] Address [address] [place] [address] Care Team Providers Care Research Chemical Engineer Name Role Phone Argenis Patel MD Primary Care Provider [phone] Reason for Referral * Consultation (Routine) - Pending Review Specialty Diagnoses / Procedures Referred By Contac t Referred To Contact Cardiology Diagnoses Atrial fibrillation, unspecified type (CMS/HCC) Argenis Patel MD [address] [place] [address] Phone: tel: fax: Referral ID Status Reason Start Date Expiration Date Visits Requested Visits Authorized [id number] Pending Review Specialty Services Required 12/02/2024 12/02/2025 1 1 Reason for Visit * Reason Onset Date Comments Referral 11/19/2024 Cardiology Encounter Details Date Type Department Care Team (Late st Contact Info) Description 11/19/2024 Telephone Adult Medicine [facility] [address] [place] [phone] Maxine Bonilla MA Referral (Cardiology ) Social [...] Bonilla MA - 11/19/2024 9:09 AM EST Andelahart message from patient : Joaquina, I was in the ER last week 11/05/24 at [facility] for my heart being in AFib. I would like for Dr Patel to send a referral to: [facility]. [address] [place] [address] Dr 3rd floor [place] [phone] They want me to do a follow up with a hosiery mender and this is where I would like to go. Thank you Basil Lu documented in this encounter Plan of Treatment Upcoming Encounters Date Type Department Care Team (Late st Contact Info) Description 11/03/2025 9:00 AM EST Office Visit Adult Medicine - [place] [address] [facility] [place] [address] Argenis Patel MD [address] [place] [address] Scheduled Referrals Name Type Priority Associated Diagnoses Order Schedule Ambulatory referral to Cardiology Outpatient Referral Routine Atrial fibrillation, unspecified type (CMS/HCC) 1 Occurrences starting 12/02/2024 until 11/20/2025 documented as of this encounter Visit Diagnoses Diagnosis Atrial fibrillation, unspecified type (CMS/HCC)- Primary documented in this encounter Care Teams Research Chemical Engineer Relationship Specialty Start Date End Date Argenis Patel MD [address] [place] [address] PCP - General Internal Medicine 12/09/15 documented as of this encounter
--- OUTSIDE RECORDS SUMMARY | 2024-12-24 09:30 | XMS_ITS | Clinical Summary ---
Author Organization [facility] [address] [facility] Address [address] [place] [address] Phone Care Team Providers Care Veterinary Technologist Name Role Phone Argenis Patel MD Primary Care Provider [phone] Allergies No known active allergies Medications ibuprofen [...] Description 12/09/2024 2:15 PM EST Anesthesia Event [facility] Endoscopy [address] [place] [address] Lesly Winter MD Elliott, Barbara J, CRNA 12/09/2024 12:39 PM EST - 12/09/2024 11:59 PM EST Hospital Encounter [facility] Endoscopy [address] [place] [address] Stephen Infante MD Freeman, Katharine O, MD Elliott, Barbara J, CRNA Colon cancer screening Discharge Disposition: Home or Self Care 11/19/2024 Telephone Adult Medicine - [address] [address] Maxine Bonilla MA Referral (Cardiology ) 10/31/2024 9:00 AM EST Office Visit Adult [address] [address] Argenis Patel MD Routine general medical examination at a health care facility (Primary Dx); Screening, lipid; Screening for diabetes mellitus; Colon cancer screening; URI, acute; Overweight (BMI 25.0-29.9) from Last 3 Months Immunizations Name Administration Dates Next Due Tdap Tetanus diptheria acell ular pertussis (Boostrix; Adacel) 7yo and older 04/05/2016 Surgical History Surgery Date Site/Laterality Comments OTHER SURGICAL HISTORY 2013 PROCEDURE: [place] CHEMICAL CAUTERIZATION OF GRANULATION TISSUE; COMMENT: Nasal [...] AM EST Office Visit Adult Medicine - [place] [address] [place] [phone] Argenis Patel MD [address] [place] [address] Health Maintenance Due Date Last Done Comments [...] Results * COLONOSCOPY Anesthesia - MAC; [facility] ENDOSCOPY (12/09/2024 2:31 PM EST) Anatomical [...] for surveillance. Narrative 12/09/2024 2:32 PM EST [facility] GI Patient Name: Basil Guan [...] neoplasm ? of colon CPT copyright 2020 [employer]. All rights reserved. The codes documented in this report are preliminary and upon director graphics review may be revised to meet current compliance requirements. MD Stephen Zacarias MD 12/09/2024 2:32:37 PM This report has been signed electronically.Stephen Infante MD Number of Addenda: 0 Note Initiated On: 12/09/2024 2:10 PM Scope In: Scope Out: ? Endoscopy Department at [facility] - [address] [place] [address], ? [place] [address] Procedure Note Stephen Infante MD - 12/09/2024 [facility] GI Patient Name: Basil Guan [...] for malignantneoplasm of colon CPT copyright 2020 [employer]. All rights reserved. The codes documented in this report are preliminary and upon director graphics reviewmay be revised to meet current compliance requirements. MD Stephen Zacarias MD 12/09/2024 2:32:37 PM This report has been signed electronically.Stephen Infante MD Number of Addenda: 0 Note Initiated On: 12/09/2024 2:10 PM Scope In: Scope Out: Endoscopy Department at [facility] - [address] [place] [phone] IMPRESSION: - The entire examined colon is [...] mg/dL LAB CHEMISTRY METHOD 10/31/2024 4:08 PM [facility] Triglycerides 77 0 - 150 mg/dL LAB CHEMISTRY METHOD 10/31/2024 4:08 PM [facility] HDL 38(L) >=40 mg/dL LAB CHEMISTRY METHOD 10/31/2024 4:08 PM [facility] LDL Calculated 49 0 - 100 mg/dL LAB CHEMISTRY METHOD 10/31/2024 4:08 PM [facility] VLDL Cholesterol Rony 15.4 mg/dL LAB CHEMISTRY METHOD 10/31/2024 4:08 PM [facility] Non HDL Chol. (LDL+VLDL) 64 <145 mg/dL LAB CHEMISTRY METHOD 10/31/2024 4:08 PM [facility] Chol/HDL Ratio 2.7 0.0 - 4.4 LAB CHEMISTRY METHOD 10/31/2024 4:08 PM [facility] Blood Venous blood specimen / Unknown Venipuncture / Unknown 10/31/2024 9:40 AM EST 10/31/2024 9:40 AM EST C Edgar Patel MD LAB BLOOD ORDERABLES Final Res ult [facility] [address] [place] [address], [place] [phone] * (ABNORMAL) Comprehensive metabolic panel (10/31/2024 9:40 AM EST) Sodium 136 133 - 145 mmol/L LAB CHEMISTRY METHOD 10/31/2024 4:08 PM [facility] Potassium 3.7 3.5 - 5.5 mmol/L LAB CHEMISTRY METHOD 10/31/2024 4:08 PM [facility] Chloride 104 96 - 110 mmol/L LAB CHEMISTRY METHOD 10/31/2024 4:08 PM [facility] CO2 28 21 - 32 mmol/L LAB CHEMISTRY METHOD 10/31/2024 4:08 PM [facility] Anion Gap 4 3 - 11 LAB CHEMISTRY METHOD 10/31/2024 4:08 PM [facility] Glucose 108(H) 70 - 100 mg/dL LAB CHEMISTRY METHOD 10/31/2024 4:08 PM [facility] BUN 16 5 - 25 mg/dL LAB CHEMISTRY METHOD 10/31/2024 4:08 PM [facility] Creatinine 1.11 0.70 - 1.30 mg/dL LAB CHEMISTRY METHOD 10/31/2024 4:08 PM [facility] eGFR 83 >=60 mL/min/1. 73m2 LAB CHEMISTRY METHOD 10/31/2024 4:08 PM [facility] Comment:Calculation based on the??Chronic Kidney Disease Epidemiology Collaboration (CKD-EPI) equation refit??without adjustment for race. BUN/Creatinine Ratio 14.4 LAB CHEMISTRY METHOD 10/31/2024 4:08 PM [facility] Calcium 9.2 8.5 - 10.5 mg/dL LAB CHEMISTRY METHOD 10/31/2024 4:08 PM [facility] AST (SGOT) 14 10 - 42 unit/L LAB CHEMISTRY METHOD 10/31/2024 4:08 PM [facility] ALT (SGPT) 19 10 - 60 unit/L LAB CHEMISTRY METHOD 10/31/2024 4:08 PM [facility] Alkaline Phosphatase 75 42 - 121 unit/L LAB CHEMISTRY METHOD 10/31/2024 4:08 PM [facility] Total Protein 7.1 6.0 - 8.0 g/dL LAB CHEMISTRY METHOD 10/31/2024 4:08 PM [facility] Albumin 4.1 3.2 - 5.0 g/dL LAB CHEMISTRY METHOD 10/31/2024 4:08 PM [facility] Total Bilirubin 1.0 0.0 - 1.4 mg/dL LAB CHEMISTRY METHOD 10/31/2024 4:08 PM [facility] Blood Venous blood specimen / Unknown Venipuncture / Unknown 10/31/2024 9:40 AM EST 10/31/2024 9:40 AM EST us C Edgar Patel MD LAB BLOOD ORDERABLES Final Res ult [facility] [address] [place] [address], from Last 3 Months Insurance [employer] Care Teams Veterinary Technologist Relationship Specialty Start Date End Date Argenis Patel MD [address] [place] [phone] PCP - General Internal Medicine 12/09/15
--- OUTSIDE RECORDS SUMMARY | 2024-12-24 09:30 | XMS_ITS | Encounter Summary ---
Author Organization [facility] Address [address] [place] [address] Care Team Providers Care Evp Marketing Name Role Phone Argenis Patel MD Primary Care Provider [phone] Reason for Referral * Hospital - Outpatient (Routine) - Closed Specialty Diagnoses / Procedures Referred By Contac t Referred To Contact Gastroenterology Diagnoses Colon cancer screening Procedures COLONOSCOPY Anesthesia - MAC; [facility] ENDOSCOPY Stephen Infante MD [address] [address] Phone: tel: fax: [facility] Endoscopy [address] [place] [phone] Phone: tel: Referral ID Status Reason Start Date Expiration Date Visits Re quested Visits Authorized [id number] Closed 11/13/2024 11/13/2025 1 1 Reason for Visit * Hospital - Outpatient (Routine) - Closed Specialty Diagnoses / Procedures Referred By Contac t Referred To Contact Gastroenterology Diagnoses Colon cancer screening Procedures COLONOSCOPY Anesthesia - MAC; [facility] ENDOSCOPY Stephen Infante MD [address] [address] Phone: tel: fax: [facility]oscopy [address] [place] [address] Phone: tel: Referral ID Status Reason Start Date Expiration Date Visits Re quested Visits Authorized [id number] Closed 11/13/2024 11/13/2025 1 1 Encounter Details Date Type Department Care Team (Late st Contact Info) Description 12/09/2024 12:39 PM EST - 12/09/2024 11:59 PM EST Hospital Encounter [facility] [address] [place] [phone] Stephen Infante MD [address] [address] Lesly Winter MD [address] [place] [phone] Pari Branham CRNA [address] [place] [phone] Colon cancer screening Discharge Disposition: Home or [...] sent through Care Everywhere. * Colonoscopy: Post-op (Kosovan) documented in this encounter Medications at Time [...] Description 11/03/2025 9:00 AM EST Office Visit [facility] [address] [place] [address] Argenis Patel MD [address] [place] [address] documented as of this encounter Procedures Procedure [...] for surveillance. Narrative 12/09/2024 2:32 PM EST [facility] GI Patient Name: Basil Lu Procedure [...] neoplasm ? of colon CPT copyright 2020 [employer]. All rights reserved. The codes documented in this report are preliminary and upon harbor engineer review may be revised to meet current compliance requirements. MD Stephen Zacarias MD 12/09/2024 2:32:37 PM This report has been signed electronically.Stephen Infante MD Number of Addenda: 0 Note Initiated On: 12/09/2024 2:10 PM Scope In: Scope Out: ? Endoscopy Department at [facility] - [address] [place] [address], ? [place] [address] Procedure Note Stephen Infante MD - 12/09/2024 [facility] GI Patient Name: Basil Lu Procedure [...] for malignantneoplasm of colon CPT copyright 2020 [employer]. All rights reserved. The codes documented in this report are preliminary and upon harbor engineer reviewmay be revised to meet current compliance requirements. MD Stephen Zacarias MD 12/09/2024 2:32:37 PM This report has been signed electronically.Stephen Infante MD Number of Addenda: 0 Note Initiated On: 12/09/2024 2:10 PM Scope In: Scope Out: Endoscopy Department at [facility] - [address] [place] [phone] IMPRESSION: - The entire examined colon is [...] medications. - Repeat colonoscopy in 10 years formerly [facility]. Stephen Infante MD GI~PROCEDURE ORDERABLES Final R [...] 12/09/2024 documented in this encounter Care Teams Evp Marketing Relationship Specialty Start Date End Date Argenis Patel MD [address] [place] [address] PCP - General Internal Medicine 12/09/15 documented as of this encounter
--- OUTSIDE RECORDS SUMMARY | 2024-12-24 09:30 | XMS_ITS | Encounter Summary ---
Author Organization [facility] Address [address] [place] [address] Care Team Providers Care Utility Bill Collection Clerk Name Role Phone Argenis Patel MD Primary Care Provider Encounter Details Date Type Department Care Team (Late st Contact Info) Description 12/09/2024 2:15 PM EST Anesthesia Event [facility] Endoscopy [address] [place] [address] Lesly Winter MD [address] [place] [phone] Pari Branham CRNA [address] [place] [phone] Anesthesia Record Procedure Summary Procedure Name Responsible [...] Procedure Summary Date: 12/09/24 Room / Location: [facility] Endoscopy Anesthesia Start: 141 Anesthesia Stop: [...] Laterality Date OTHER SURGICAL HISTORY 2013 PROCEDURE: [place] CHEMICAL CAUTERIZATION OF GRANULATION TISSUE; COMMENT: Nasal [...] AM EST Office Visit Adult Medicine - [place] [address] [place] [phone] Argenis Patel MD [address] [place] [address] documented as of this encounter Visit Diagnoses [...] mg documented in this encounter Care Teams Utility Bill Collection Clerk Relationship Specialty Start Date End Date Argenis Patel MD [address] [place] [address] PCP - General Internal Medicine 12/09/15 documented as of this encounter
== END 2024-12-24 09:24 | disposition home or self-care (01) ==
LOC: HO.HCS 08:42
PROVIDERS: Visit Provider Nurse Practitioner Family
DX: I48.0 Paroxysmal atrial fibrillation (principal)
CPT/HCPCS: 99213

== ENCOUNTER → 2024-12-31 07:51 | Outpatient (BNVA) | payer SELFPAY | PROVIDERS: Visit Provider Registered Nurse | DX: Z02.79 Encounter for issue of other medical certificate (principal) ==

== ENCOUNTER 2025-05-26 08:31 | Outpatient (AMB) | payer OTHER, SELFPAY ==
--- NOTE | 2025-05-26 08:43 | MHC.OFFVIS ---
Vital Signs 05/26/25 08:44 Height 6 ft 1 in Weight 203 lb 4.259 oz BMI 26.8 BP 116/82 Blood Pressure Location Lt brachial Position Sitting Pulse 73 Pulse Source Pulse Oximeter Intake Visit Reasons: 5 mth f/up Intake Note: 5 Month F/up Director Of Laboratory Operations Required: No Accompanied by: Self / Same As Patient Allergies No Known Allergies Allergy (Verified 12/24/24 08:55) Medication List - Last Reconciled 05/26/25 by Parminder [place] MD metoprolol succinate ER 25 mg PO DAILY HPI Comments Details: Basil comes for follow-up. He has been doing very well since he has been on metoprolol therapy and has not had any episodes of prolonged palpitations. He occasionally feels quick fluttering in his chest which is rare. Not very bothersome but he notices it. He said he takes metoprolol Entresto taken on every day but sometimes forgets to take it. Denies any exertional chest pain or shortness of breath. He is very active. Denies any orthopnea, PND, leg edema. No lightheadedness, syncope. [facility] Medical History Paroxysmal atrial fibrillation Family History Mother Heart attack Social History Alcohol intake: current Alcohol intake frequency: holidays/special occasions only Review of Systems Const Denies daytime sleepiness, Denies difficulty sleeping, Denies snoring, Denies stops breathing during sleep and Denies weakness Card Denies chest pain, Denies rapid heart rate, Denies irregular heart rhythm, Denies claudication, Denies leg edema, Denies lightheadedness, Denies palpitations, Denies dyspnea, Denies dyspnea on exertion, Denies orthopnea, Denies paroxysmal nocturnal dyspnea and Denies slow heart rate Resp Denies cough, Denies dyspnea, Denies dyspnea on exertion and Denies snoring GI Reports no additional complaints, Denies hematochezia, Denies change in stool character and Denies dyspepsia Musc Denies abnormal gait, Denies muscle weakness and Denies numbness Neuro Denies abnormal gait, Denies numbness and Denies weakness Endo Denies palpitations Physical Exam Vital Signs: Last Vital Signs Pulse 73 05/26/25 08:44 BP 116/82 05/26/25 08:44 BMI result Body Mass Index 26.8 Const General: cooperative, healthy appearing, comfortable and no acute distress Orientation/consciousness: patient oriented x3 Neck Neck: Yes normal visual inspection Resp Effort & Inspection: normal respiratory effort Auscultation: clear to auscultation bilaterally, no crackles, no rales, no rhonchi and no wheezes Cardio Jugular venous distension: no JVD Rate: regular rate Rhythm: regular rhythm Heart sounds: S1 normal heart sound present, S2 normal heart sound present, no murmurs and no rubs Neuro General: patient oriented x3 Extrem General: Yes normal to inspection, No no pedal edema and No calf tenderness Psych Appearance: grossly normal Mental Status: mental status grossly normal Speech and movement: Normal speech and movement present Assessment & Plan Assessment & Plan (1) Paroxysmal atrial fibrillation: Code(s): I48.0 - Paroxysmal atrial fibrillation Category: Medical Plan: Highly symptomatic paroxysmal atrial fibrillation without any clear trigger factors. Patient is currently doing well on metoprolol therapy and tolerating it. We discussed in details about pathophysiology of atrial fibrillation mechanism. He has normal structure of the heart in his likely that he has electrical atrial fibrillation which Mibi more amenable to ablation treatment. This was discussed with him. We discussed about triggers for atrial fibrillation including excessive caffeine and alcohol use. He understands. We discussed about stress mitigation strategies. Discussed about continue participate in regular physical activity and live a normal life. Importance of metoprolol and mechanism metoprolol action was discussed. Continue the same. Advised to longest symptoms if he starts getting more symptoms. Also to identify any possible potential triggers. He understands management of atrial fibrillation well at this point in time. Will follow up in the clinic in 1 year's time, sooner p.r.n.. Thank you for allowing me to partake in his care Coding Level of Care Code Est Pt Level 4 (56162) Complex EM visit Add On G2211 Diagnoses Paroxysmal atrial fibrillation I48.0
[2025-05-26 08:44] VITALS: BP 116/82; PULSE 73; BMI 26.8
--- OUTSIDE RECORDS SUMMARY | 2025-05-26 08:50 | XMS_ITS | Clinical Summary ---
Author Organization [facility] [address] [facility] Address [address] [place] [address] Phone Care Team Providers Care Public Policy Associate Name Role Phone Argenis Patel MD Primary Care Provider [phone] Allergies No known active allergies Medications ibuprofen [...] Problem Noted Date Diagnosed Date Atrial fibrillation (CMS/HCC V24, CMS/HCC V28) 0 11/29/2024 Overview (11/29/2024): 11/09 Screening, lipid 10/31/2024 Overweight (BMI 25.0-29.9) 06/15/2020 Epistaxis, recurrent 07/24/2018 Overview (09/09/2024): 2013 - Cauterizaton- both nares, CT- mild chronic sinusitis, hypoplastic R maxillary sinus, marked nasal septal deviation Rash 04/05/2016 Immunizations Name Administration Dates Next Due Tdap Tetanus diptheria acell ular pertussis (Boostrix; Adacel) 7yo and older 04/05/2016 Surgical History Surgery Date Site/Laterality Comments OTHER SURGICAL HISTORY 2013 PROCEDURE: [place] CHEMICAL CAUTERIZATION OF GRANULATION TISSUE; COMMENT: Nasal [...] 80 12/09/2024 2:52 PM EST Temperature 35.8 C (96.4 F) 12/09/2024 2:32 PM EST Respiratory Rate 16 12/09/2024 2:52 PM EST [...] 9:00 AM EST Office Visit Adult Medicine [facility] [address] [place] [address] Argenis Patel MD [address] [place] [address] Health Maintenance Due Date Last Done Comments Hepatitis B Vaccines (1 of 3 - 19+ 3-dose series) 1997 HIV Screening 09/17/2022 Social Influencers of Health Screening 09/17/2022 COVID-19 Vaccine (1 - 2023-2 5 season) 2024 Depression Screening 10/16/2024 Influenza Vaccine (#1) 2025 DTaP,Tdap,and Td Vaccines (2 - Td or [...] age to complete this topic Meningococcal B Vaccine Aged Out No l onger eligible based on patient's age to complete this topic Pneumococcal Vaccine: Pediatrics (0 to 5 Years) and At-Risk Patients (6 to 49 Years) Aged Out No longer eligible b [...] 12/09/2024 2:31 PM EST Colon cancer screening LIPID PANEL WITH REFLEX TO DIRECT LDL Routine 10/31/2024 9:40 AM EST Screening, lipid from Last 3 Months or Most Recently Relevant to Health Maintenance Results * COLONOSCOPY Anesthesia - MAC; [facility] ENDOSCOPY (12/09/2024 2:31 PM EST) Anatomical Region Laterality Modality Other 12/09/2024 2:10 PM EST Impressions 12/09/2024 2:32 PM EST - The entire examined colon is normal on direct and retroflexion views. - No specimens collected. Recommendation: - Patient has a contact number available for emergencies. The signs and symptoms of potential delayed complications were discussed with the patient. Return to normal activities tomorrow. Written discharge instructions were provided to the patient. - Resume previous diet. - Continue present medications. - Repeat colonoscopy in 10 years for surveillance. Narrative 12/09/2024 2:32 PM EST [facility] GI Patient Name: Basil Guan [...] scope was passed under direct vision. Throughout the procedure, the patient's blood pressure, pulse, and oxygen saturations were monitored continuously. The Colonoscope was introduced through the anus and advanced to the cecum, identified by appendiceal orifice and ileocecal valve. The colonoscopy was performed without difficulty. The patient tolerated the procedure well. The quality of the bowel preparation was adequate. Requiring much suction and irrrigation. Findings: The entire examined colon appeared normal on direct and retroflexion views. Procedure Code(s): --- Professional --- G0121, Colorectal cancer screening; colonoscopy on individual not meeting criteria for high risk Diagnosis Code(s): --- Professional --- Z12.11, Encounter for screening for malignant neoplasm of colon CPT copyright 2020 [employer]. All rights reserved. The codes documented in this report are preliminary and upon net architect review may be revised to meet current compliance requirements. MD Stephen Zacarias MD 12/09/2024 2:32:37 PM This report has been signed electronically.Stephen Infante MD Number of Addenda: 0 Note Initiated On: 12/09/2024 2:10 PM Scope In: Scope Out: Endoscopy Department at [facility] - [address] [place] [id number] Procedure Note Stephen Infante MD - 12/09/2024 [facility] GI Patient Name: Basil Guan [...] for malignantneoplasm of colon CPT copyright 2020 [employer]. All rights reserved. The codes documented in this report are preliminary and upon net architect reviewmay be revised to meet current compliance requirements. MD Stephen Zacarias MD 12/09/2024 2:32:37 PM This report has been signed electronically.Stephen Infante MD Number of Addenda: 0 Note Initiated On: 12/09/2024 2:10 PM Scope In: Scope Out: Endoscopy Department at [address] [address] IMPRESSION: - The entire examined colon is [...] medications. - [facility] colon[facility] in [facility] Stephen Infante MD GI~PROCEDURE ORDERABLES Final R esult * (ABNORMAL) Lipid panel with reflex to direct LDL (10/31/2024 9:40 AM EST) Cholesterol 102 0 - 200 mg/dL LAB CHEMISTRY METHOD 10/31/2024 4:08 PM [facility] Triglycerides 77 0 - 150 mg/dL LAB CHEMISTRY METHOD 10/31/2024 4:08 PM EST [facility] HDL 38(L) >=40 mg/dL LAB CHEMISTRY METHOD 10/31/2024 4:08 PM EST [facility] LDL Calculated 49 0 - 100 mg/dL LAB CHEMISTRY METHOD 10/31/2024 4:08 PM [facility] VLDL Cholesterol Rony 15.4 mg/dL LAB CHEMISTRY METHOD 10/31/2024 4:08 PM EST [facility] Non HDL Chol. (LDL+VLDL) 64 <145 mg/dL LAB CHEMISTRY METHOD 10/31/2024 4:08 PM EST [facility] Chol/HDL Ratio 2.7 0.0 - 4.4 LAB CHEMISTRY METHOD 10/31/2024 4:08 PM EST [facility] Blood Venous blood specimen / Unknown Venipuncture / Unknown 10/31/2024 9:40 AM EST 10/31/2024 9:40 AM EST Argenis Patel MD LAB BLOOD ORDERABLES Final Res ult [facility] [address] [place] [address], from Last 3 Months or Most Recently Relevant to Health Maintenance [place] [address] [facility], [facility] Care Teams Public Policy Associate Relationship Specialty Start Date End Date Argenis Patel MD [address] [place] [address] PCP - General Internal Medicine 12/09/15
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
== END 2025-05-26 09:02 | disposition home or self-care (01) ==
LOC: HO.HCS 08:31
PROVIDERS: Visit Provider Internal Medicine Cardiovascular Disease
DX: I48.0 Paroxysmal atrial fibrillation (principal)
CPT/HCPCS: 99214